=== PATIENT | male | born 1940 | race Caucasian/White ===

== ENCOUNTER 2021-09-16 04:02 | Inpatient (IN) | payer MEDICARE, BC ==
[~2021-09-16] VITALS: Ht 185.4 cm; Wt 93.2 kg
[2021-09-16] VITALS (405 sets, daily range): BP systolic 138–157; BP diastolic 84–119; PULSE 60–110; TEMP 97.9–98.4; O2SAT 83–100
[2021-09-16 04:32] LABS: BASO % 0.6 % (0.0-2.0); EOS # 0.1 K/mm3 (0.0-0.7); EOS % 1.7 % (0-4.0); GRAN # 4.5 K/mm3 (1.4-6.5); GRAN % 63.9 % (42.2-75.2); HEMATOCRIT 38.7 % (42.0-52.0); HEMOGLOBIN 14.3 g/dl (13.5-18.0); LYMPH # 1.5 K/mm3 (1.2-3.4); MEAN CELL VOLUME 88 fl (80.0-100.0); MEAN CORPUSCULAR HEMOGLOBIN 32 pg (27.0-31.0); MEAN CORPUSCULAR HGB CONC 37 g/dl (33.0-37.0); MEAN PLATELET VOLUME 10.3 fl (7.4-10.4); MONO # 0.8 K/mm3 (0.1-0.6); MONO % 11.2 % (1.7-9.3); PLATELET COUNT 186 K/mm3 (130-400); RED BLOOD COUNT 4.41 M/mm3 (4.20-5.60); REDCELL DISTRIBUTION WIDTH-CV 13.3 % (11.5-14.5)
[2021-09-16 04:47] LABS: ALBUMIN 4.3 gm/dL (3.4-4.8); BILIRUBIN,TOTAL 0.8 mg/dL (0.2-1.2); CALCIUM 9.9 mg/dL (8.4-10.2); CREATININE, serum 1.12 mg/dL (0.72-1.25); POTASSIUM 3.6 mmol/L (3.5-4.5); TOTAL PROTEIN 6.9 gm/dL (6.2-8.1)
[2021-09-16 04:48] LABS: INR 1.2 (0.8-3.0); PROTHROMBIN TIME 12.8 SECONDS (9.7-12.8)
[2021-09-16 04:51] LABS: PARTIAL THROMBOPLASTIN TIME 37.3 SECONDS (26.0-37.0)
[2021-09-16 04:53] LABS: TROPONIN-I 0.02 ng/mL (0.00-0.033)
[2021-09-16 04:53] LABS: COLLECTION METHOD IN
[2021-09-16 05:03] LABS: PH 8 (5-8); SQUAMOUS EPITHELIAL None Seen /hpf; URINE APPEARANCE Clear; URINE BACTERIA None Seen /hpf; URINE BILIRUBIN Negative (NEGATIVE); URINE BLOOD Negative (NEGATIVE); URINE COLOR Colorless; URINE GLUCOSE Negative (NEGATIVE); URINE KETONE Negative (NEGATIVE); URINE LEUKOCYTE ESTERASE Negative (NEGATIVE); URINE NITRATE Negative (NEGATIVE); URINE PROTEIN(semi-quant) Negative (NEGATIVE); URINE RBC 0-2 /hpf; URINE UROBILINOGEN Negative (NEGATIVE)
[2021-09-16] MEDS ORDERED: XARELTO20 MG PO (08:17)
[2021-09-16] MEDS ORDERED: COZAAR 25MG25 MG/TAB PO (08:18)
[2021-09-16] MEDS ORDERED: PRAVACHOL 40MG40 MG PO (08:18)
[2021-09-16] MEDS ORDERED: TOPROL XL 50MG50 MG PO (08:19)
[2021-09-16] MEDS ORDERED: ZYLOPRIM 300MG300 MG PO (08:19)
--- NOTE | 2021-09-16 08:30 | NUR ---
Patient arrives via cart from ED to room ICU 5. He is alert and oriented. Speech is impaired and garbled. Right sided facial droop noted. Extremities are strong bilaterally and equally. VS WNL. Cardizem gtt infusing for rate control. Afib on telemetry. and Son brought in to the room.
--- NOTE | 2021-09-16 18:00 | NUR ---
DR. BASSETT HERE TO SEE PATIENT
--- NOTE | 2021-09-16 18:28 | NUR ---
BEDSIDE SWALLOW EVAL DONE AGAIN PER PATIENT REQUEST. HE COUGHED ALMOST IMMEDIATELY AFTER TAKING IN A SIP OF WATER. HE ALSO HAD WATER RUN OUT THE SIDE OF HIS MOUTH DURING THIS TIME. HE IS GIVEN EMOTIONAL ENCOURAGEMENT AND TOLD ABOUT THE PLANNED CONSULT WITH SPEECH THERAPY TO HELP DETERMINE HIS SWALLOW NEEDS.
[2021-09-17] VITALS (238 sets, daily range): BP systolic 105–154; BP diastolic 59–100; PULSE 65–94; TEMP 97.6–98.3; O2SAT 92–100
[2021-09-17 05:08] LABS: BASO % 0.4 % (0.0-2.0); EOS # 0.1 K/mm3 (0.0-0.7); EOS % 1.2 % (0-4.0); GRAN # 6.8 K/mm3 (1.4-6.5); GRAN % 75.2 % (42.2-75.2); HEMATOCRIT 37.5 % (42.0-52.0); LYMPH # 1.2 K/mm3 (1.2-3.4); LYMPH % 13.4 % (20.0-51.0); MEAN CELL VOLUME 87 fl (80.0-100.0); MEAN CORPUSCULAR HEMOGLOBIN 33 pg (27.0-31.0); MEAN CORPUSCULAR HGB CONC 37 g/dl (33.0-37.0); MEAN PLATELET VOLUME 10.8 fl (7.4-10.4); MONO # 0.9 K/mm3 (0.1-0.6); MONO % 9.4 % (1.7-9.3); PLATELET COUNT 188 K/mm3 (130-400); RED BLOOD COUNT 4.31 M/mm3 (4.20-5.60); REDCELL DISTRIBUTION WIDTH-CV 13.2 % (11.5-14.5)
[2021-09-17 05:28] LABS: ALBUMIN 3.8 gm/dL (3.4-4.8); BILIRUBIN,TOTAL 1.3 mg/dL (0.2-1.2); CALCIUM 8.8 mg/dL (8.4-10.2); CHOLESTEROL RISK RATIO 3.8; CREATININE, serum 0.85 mg/dL (0.72-1.25); POTASSIUM 3.5 mmol/L (3.5-4.5); TOTAL PROTEIN 5.9 gm/dL (6.2-8.1)
--- NOTE | 2021-09-17 09:00 | NUR ---
BEDSIDE SWALLOW EVAL DONE ON THIS PATIENT BY THIS RN. PATIENT GIVEN HONEY THICK WATER AND HE DID WELL. HE WAS ALSO GIVEN NECTAR THICK WATER AND HE DID WELL. PATIENT TRIALED APPLESAUCE, PUDDING AND JELLO AND A ALKA CRACKER. HE DID NOT HAVE ISSUE WITH ANY OF THESE FOOD ITEMS. DR. RICHEY GIVES PERMISSION TO PLACE PATIENT ON MECHANICAL SOFT DIET AND NECTAR THICK LIQUIDS. PILL ARE TO BE CRUSHED WITH APPLESAUCE OR PUDDING.
--- NOTE | 2021-09-17 11:45 | NUR ---
DR. TAMAYO ROUNDS AT THIS TIME AND GIVES ORDER TO GIVE MAGNESIUM IV AND AMIODARONE PO. HE STATES THAT HE WILL TALK TO DR. RICHEY ABOUT THIS RECOMMENDATIONS.
--- NOTE | 2021-09-17 18:01 | NUR ---
PATIENT TRANSFERRED TO ROOM 354.
--- NOTE | 2021-09-17 19:18 | NUR ---
PT ARRIVED FROM ICU AT 1730HRS. NEURO CHECK AND ASSESSMENT COMPLETE. POTASSIUM GIVEN WITH NECTAR THICKEN LIQUID. PT RESTING IN BED WITH BY HIS SIDE. PT DENIES PAIN, PALPITATIONS OR DIZZINESS. PT STATES HE HAS NO OTHER NEEDS AT THIS TIME. CALL LIGHT WITHIN REACH.
[2021-09-18 00:21] VITALS: BP 169/75; PULSE 71; TEMP 98.7
[2021-09-18 03:55] VITALS: BP 145/73; PULSE 65; TEMP 98.1
[2021-09-18 07:15] LABS: CALCIUM 9.2 mg/dL (8.4-10.2); CREATININE, serum 0.93 mg/dL (0.72-1.25); MAGNESIUM 1.9 mg/dL (1.6-2.6)
[2021-09-18 07:58] VITALS: BP 165/80; PULSE 73; TEMP 98.9
--- NOTE | 2021-09-18 09:58 | NUR ---
Pt assessment complete. Pt is sitting up in bed upon entry, he is A/O x4. He is back from MRI at this time. Pt denies any pain. No SOB. Pt continues to have R sided facial droop and slurred speech. Took pills whole with nectar thick liquids without issues. POC discussed with patient and his family. No further needs at this time. Call light within reach.
--- NOTE | 2021-09-18 10:15 | NUR ---
custodial worker met with patient to discuss discharge plan. Patient's Yaneth ([phone]) and son Primitivo ([phone]) both present at bedside. Patient reports that at home he is independent with his activities of daily living and he reports that he actually helps his with hers. Patient reports that he does not utilize any DME within the home and has no O2 needs. PCP is Dr. Good in [place] and he utilizes [facility] in [place] with no cost difficulty. Patient reports that he does have a DPOA-HC established and that both his along with his son Primitivo,whom is a doctor are listed as his agents. Patient has used [facility] in [place] before for a shoulder problem and would like to resume their care for OP PT. Discharge plan: Home with family assist
[2021-09-18] MEDS ORDERED: PACERONE200 MG PO (11:12)
[2021-09-18] MEDS ORDERED: ASPIRIN E.C. 8181 MG PO (11:13)
[2021-09-18] MEDS ORDERED: APRESOLINE 10MG10 MG PO (11:14)
[2021-09-18 12:11] VITALS: BP 159/81; PULSE 74; TEMP 97.8
--- NOTE | 2021-09-18 13:55 | NUR ---
Discharge paperwork and instructions reviewed with patient and his family. All questions answered at this time. IV to R hand and LFA dc'd catheter tip intact. Pt wheeled out at this time.
== END 2021-09-18 13:56 | disposition home or self-care (01) | DRG 65 ==
LOC: COL.ER 04:02 → ICU 07:02 → MEDICAL 09-17 17:25
PROVIDERS: Emergency Medicine; ADMIT Internal Medicine
DX: I63.232 Cerebral infarction due to unspecified occlusion or stenosis of left carotid arteries (principal); I48.20 Chronic atrial fibrillation, unspecified; I10 Essential (primary) hypertension; I08.3 Combined rheumatic disorders of mitral, aortic and tricuspid valves; M10.9 Gout, unspecified; K21.9 Gastro-esophageal reflux disease without esophagitis; E21.3 Hyperparathyroidism, unspecified; R13.10 Dysphagia, unspecified; R47.81 Slurred speech; R29.810 Facial weakness; E78.5 Hyperlipidemia, unspecified; Z79.01 Long term (current) use of anticoagulants; Z95.818 Presence of other cardiac implants and grafts; Z87.891 Personal history of nicotine dependence; Z88.2 Allergy status to sulfonamides
CPT/HCPCS: 99223-AI; 99233-AI; 99239; A9585; J1650; J3475; J7030; Q9967